=== PATIENT | male | born 1930 | race Caucasian/White ===

== ENCOUNTER 2019-01-15 16:26 | Emergency (ER) | payer MEDICARE ==
[2019-01-15] MEDS ORDERED: IPRATROPIUM/ALBUTEROL (0.5MG/3MG) NEB INH ONE (16:45)
--- NOTE | 2019-01-15 16:52 | Emergency Department Record ---
History of Present Illness - General Chief Complaint: Shortness of breath Stated Complaint: CADENCE Time Seen by Provider: 01/15/19 16:39 Source: Patient Mode of Arrival: Wheelchair Limitations: No limitations - History of Present Illness Initial Comments: The patient is here due to a one day hx of cough, congestion and COPD. He denies any CP, back pain or fever. The patient has a long hx of COPD and is on home O2. 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 MD Complaint: Cough, Shortness of breath Onset/Timin -: Days(s) Consistency: Constant Improves With: Nothing Worsens With: Coughing, Exertion, Lying flat Known History Of: COPD Associated Symptoms: Cough, Sputum production Treatments Prior to Arrival: Oxygen - Related Data Home Oxygen Therapy: Yes Home Oxygen Amount: 2 Liters Home Medications Medication Instructions Recorded Confirmed Last Taken Budesonide/Formoterol Fumarate 1 puff IH DAILY 01/15/19 01/15/19 Unknown [Symbicort 160-4.5 Mcg Inhaler] Ipratropium [place] [Atrovent Hfa] 1 puff IH DAILY 01/15/19 01/15/19 Unknown Previous Rx's Medication Instructions Recorded Prednisone [Prednisone 20Mg] 40 mg PO DAILY #8 tab 01/15/19 Allergies Allergy/AdvReac Type Severity Reaction Status Date / Time No Known Drug Allergies Allergy Verified 01/15/19 17:09 Travel Screening - Travel/Exposure Within Last 30 Days Have you traveled within the last 30 days?: No Review of Systems Constitutional: Denies: Chills, Fever Eyes: Denies: Eye discharge ENT: Reports: Congestion Respiratory: Reports: Cough, Dyspnea. Denies: Hemoptysis Cardiovascular: Denies: Chest pain Endocrine: Reports: Fatigue Gastrointestinal: Denies: Nausea Genitourinary: Denies: Dysuria Musculoskeletal: Denies: Arthralgia Skin: Denies: Rash Past Medical History - SOCIAL HISTORY Smoking Status: Former smoker - RESPIRATORY Hx Respiratory Disorders: Yes Hx COPD: Yes - CARDIOVASCULAR Hx Cardio Disorders: Yes Hx Hypertension: Yes Hx Vascular Disease: Yes Comment:: high cholesterol - NEURO Hx Neuro Disorders: No - GI Hx GI Disorders: Yes Hx Reflux: Yes - Hx Genitourinary Disorders: No - ENDOCRINE Hx Endocrine Disorders: No - MUSCULOSKELETAL Hx Musculoskeletal Disorders: No - PSYCH Hx Psych Problems: No - HEMATOLOGY/ONCOLOGY Hx Hematology/Oncology Disorders: No Family Medical History Any Significant Family History?: Yes Hx Cancer: Mother Physical Exam - General General Appearance: Alert, Oriented x3, Cooperative, Mild distress - Head Head exam: Atraumatic, Normocephalic - Eye Eye exam: Normal appearance, PERRL - ENT Throat exam: Normal inspection. negative: Tonsillar erythema, Tonsillar exudate - Neck Neck exam: Normal inspection, Full ROM. negative: Tenderness - Respiratory Respiratory exam: Decreased breath sounds, Wheezes. negative: Normal lung sounds bilaterally, Chest wall tenderness, Respiratory distress, Rhonchi, Stridor - Cardiovascular Cardiovascular Exam: Regular rate, Normal rhythm, Normal heart sounds. negative: Diastolic murmur - GI/Abdominal GI/Abdominal exam: Soft, Normal bowel sounds. negative: Tenderness - Extremities Extremities exam: Normal inspection, Full ROM, Normal capillary refill. negative: Tenderness - Back Back exam: Reports: Normal inspection - Neurological Neurological exam: Alert, Normal gait. negative: Abnormal gait, Motor sensory deficit - Psychiatric Psychiatric exam: negative: Anxious Course Vital Signs 01/15/19 16:34 Temperature 97.8 F Pulse Rate 105 H Respiratory 22 Rate Blood Pressure 134/80 Pulse Ox 94 L - Reevaluation(s) Reevaluation #1: The patient is doing a lot better at this time. His breathing is back to normal and his lungs are clear on exam now with no wheezing or rhonchi. The patient is moving air very well and feels MUCH better. 01/15/19 17:40 Reevaluation #2: The patient is doing very well at this time. His biox on 2 Liters is 99% and he feels MUCH better. Again his lungs are clear with no wheezing and the patient feels comfortable going home. 01/15/19 17:59 Medical Decision Making - Data Complexity MDM Data: Labs Ordered and/or Reviewed, X-Ray Ordered and/or Reviewed, EKG Ordered and/or Reviewed - Lab Data Result diagrams: 01/15/19 17:00 01/15/19 17:00 - EKG Data -: EKG Interpreted by Me EKG: No Acute Changes, Unchanged From Previous - Radiology Data Radiology results: Report reviewed (CXR: COPD, neg for acute changes.) Disposition Disposition: Discharge Clinical Impression: COPD exacerbation Disposition: Home, Self-Care Condition: (2) Stable Instructions: Dyspnea (ED) Additional Instructions: Please continue your regular medicines and continue the Prednisone tomorrow. Please see your family doctor later this week for recheck. Return to the ER for any return of the SOB, CADENCE, or any pain. Prescriptions: Prednisone [Prednisone 20Mg] 40 mg PO DAILY #8 tab Forms: Patient Portal Access Time of Disposition: 18:01 Quality - Quality Measures Quality Measures: N/A - Blood Pressure Screening View Details: Yes Does Patient Have Any of the Following: No Blood Pressure Classification: Normal BP Reading Systolic Measurement: 117 Diastolic Measurement: 62 Screening for High Blood Pressure: < Normal BP, F/U Not Required > [G8783]
[2019-01-15] MEDS ORDERED: METHYLPREDNISOLONE PF 125MG/VIAL IVP ONE (16:54)
[2019-01-15] MEDS ORDERED: ALBUTEROL SULFATE (0.083%) 2.5 MG/3 ML NEB INH ONE ×2 (16:54→17:20)
[2019-01-15 17:28] LABS: ABSOLUTE NEUTROPHIL COUNT 6.82; BASO % 0.3 % (0-6); EOS % 5.2 % (0-6); GRAN % 78.8 % (47-80); HEMATOCRIT 41.6 % (42.0-52.0); HEMOGLOBIN 13.6 gm/dl (14.0-18.0); LYMPH % 7.7 % (16-45); MEAN CELL VOLUME 94.3 fl (81-97); MEAN CORPUSCULAR HEMOGLOBIN 30.8 pg (27-33); MEAN CORPUSCULAR HGB CONC 32.7 g/dl (32-36); MEAN PLATELET VOLUME 11.5 fl (7.4-10.4); PLATELET COUNT 151 K/uL (130-400); RED BLOOD COUNT 4.41 M/uL (4.40-5.70); RED CELL DISTRIBUTION WIDTH 14.3 % (11.5-14.5); WHITE BLOOD COUNT W/O DIFF 8.7 K/uL (4.2-12.2)
[2019-01-15 17:43] LABS: BLOOD UREA NITROGEN 24 mg/dL (8-23); CREATININE 1.2 mg/dL (0.7-1.2); EST GLOMERULAR FILTRATION RATE > 60 mL/min; TOTAL PROTEIN 6.9 g/dL (6.6-8.7)
[2019-01-15 17:45] LABS: GLUCOSE,RANDOM 108 mg/dL (74-109)
[2019-01-15 17:48] LABS: ALB/GLOB RATIO 1.4 (1.1-1.8); ALKALINE PHOSPHATASE 27 U/L (40-129); ALT/SGPT 10 U/L (<41); AST/SGOT 17 U/L (10.0-50.0)
--- NOTE | 2019-01-16 19:35 | RADIOLOGY REPORT ---
EXAM: CHEST 2 VIEWS HISTORY: PATIENT HAS SHORTNESS OF BREATH. TECHNIQUE: Two views of the chest are provided along with a comparison CT scan of the chest dated 01/14/2019. FINDINGS: Calcified granulomas are again identified bilaterally. Severe emphysematous changes are identified bilaterally. Cardiomediastinal silhouette is within normal limits for size and contour. Post sternotomy changes are identified. There is no radiographic evidence of a new focal infiltrate, pleural effusion, or pneumothorax. IMPRESSION: SIGNIFICANT EMPHYSEMATOUS CHANGES ARE IDENTIFIED BILATERALLY WITHOUT RADIOGRAPHIC EVIDENCE OF A NEW, ACUTE INTRATHORACIC PROCESS. JOB NUMBER: [id number] [facility]
== END 2019-01-15 18:08 | disposition home or self-care (01) ==
LOC: ER 16:26
DX: J44.1 Chronic obstructive pulmonary disease with (acute) exacerbation (principal); I10 Essential (primary) hypertension; Z99.81 Dependence on supplemental oxygen; Z87.891 Personal history of nicotine dependence
CPT/HCPCS: 71046; 80053; 83880; 84484; 85025; 93005; 93010; 94640; 96374; 99284; J2930; J7613

== ENCOUNTER 2019-01-20 23:11 | Observation (INO) | payer MEDICARE ==
--- NOTE | 2019-01-20 23:30 | Emergency Department Record ---
History of Present Illness - General Chief Complaint: Bloody Sputum Stated Complaint: SPITTING UP BLOOD Time Seen by Provider: 01/20/19 23:12 Source: Patient Mode of Arrival: Ambulatory Limitations: No limitations - History of Present Illness Initial comments: 88 yo male presents to ED for evaluation of "spitting up blood". Patient reports history of esophageal bleeding 6-7 years ago identified on EGD, has been taking Carafate since that time without problems. Patient denies hemoptysis or difficulty in breathing, denies chest pain, fevers, chills, or recent illness. Patient reports that he feels at his baseline currently. Patient does take Joni vix at his baseline. Onset/Timin -: Days(s) Radiation: Non-Radiating Consistency: Intermittent Improves with: None Worsens with: None Associated Symptoms: Denies other symptoms Treatments Prior to Arrival: None - Pretty Coma Scale Eye Response: (4) Open spontaneously Motor Response: (6) Obeys commands Verbal Response: (5) Oriented Pretty Total: 15 - Related Data Home Medications Medication Instructions Recorded Confirmed Last Taken Aspirin [Aspirin EC] 81 mg PO DAILY 01/20/19 01/20/19 Unknown Melatonin 5 mg PO DAILY 01/20/19 01/20/19 Unknown Tiotropium [place] [Spiriva 2.5 gm IH ASDIR 01/20/19 01/20/19 Unknown Respimat] Allergies Allergy/AdvReac Type Severity Reaction Status Date / Time No Known Drug Allergies Allergy Verified 01/15/19 17:09 Travel Screening - Travel/Exposure Within Last 30 Days Have you traveled within the last 30 days?: No - Travel/Exposure Within Last Year Have you traveled outside the [place] in the last year?: No - Additonal Travel Details Have you been exposed to anyone with a communicable illness?: No - Travel Symptoms Symptom Screening: None Review of Systems Constitutional: Denies: Chills, Fever, Malaise, Night sweats Eyes: Denies: Eye discharge, Eye pain ENT: Denies: Congestion, Ear pain, Epistaxis Respiratory: Denies: Cough, Dyspnea Cardiovascular: Denies: Chest pain, Dyspnea on exertion Endocrine: Denies: Fatigue, Heat or cold intolerance Gastrointestinal: Denies: Abdominal pain, Nausea, Vomiting Genitourinary: Denies: Incontinence, Retention Musculoskeletal: Denies: Arthralgia, Back pain Skin: Denies: Bruising, Change in color Neurological: Denies: Abnormal gait, Confusion, Headache, Seizure Psychiatric: Denies: Anxiety Hematological/Lymphatic: Denies: Anemia, Blood Clots Past Medical History - SOCIAL HISTORY Smoking Status: Former smoker Alcohol Use: None Drug Use: None - RESPIRATORY Hx Respiratory Disorders: Yes Hx COPD: Yes - CARDIOVASCULAR Hx Cardio Disorders: Yes Hx Hypertension: Yes Hx Vascular Disease: Yes Comment:: high cholesterol - NEURO Hx Neuro Disorders: No - GI Hx GI Disorders: Yes Hx Reflux: Yes - Hx Genitourinary Disorders: No - ENDOCRINE Hx Endocrine Disorders: No - MUSCULOSKELETAL Hx Musculoskeletal Disorders: No - PSYCH Hx Psych Problems: No - HEMATOLOGY/ONCOLOGY Hx Hematology/Oncology Disorders: No Family Medical History Any Significant Family History?: Yes Hx Cancer: Mother Physical Exam - General General Appearance: Alert, Oriented x3, Cooperative, Mild distress Limitations: No limitations - Head Head exam: Atraumatic, Normocephalic, Normal inspection Head exam detail: negative: Abrasion, Contusion, Montoya's sign, General tenderness, Hematoma, Laceration - Eye Eye exam: Other (Cloudy cornea left eye). negative: Conjunctival injection, Periorbital swelling, Periorbital tenderness, Scleral icterus - ENT Ear exam: negative: Auricular hematoma, Auricular trauma Nasal Exam: negative: Active bleeding, Discharge, Dried blood, Foreign body Mouth exam: negative: Drooling, Laceration, Muffled voice, Tongue elevation - Neck Neck exam: Normal inspection. negative: Meningismus, Tenderness - Respiratory Respiratory exam: Normal lung sounds bilaterally. negative: Rales, Respiratory distress, Rhonchi, Stridor - Cardiovascular Cardiovascular Exam: Normal rhythm, Normal heart sounds, Tachycardia - GI/Abdominal GI/Abdominal exam: Soft. negative: Rebound, Rigid, Tenderness - Rectal Rectal exam: Deferred - exam: Deferred - Extremities Extremities exam: Normal inspection. negative: Pedal edema, Tenderness - Back Back exam: Denies: CVA tenderness (R), CVA tenderness (L) - Neurological Neurological exam: Alert, Normal gait, Oriented X3 - Psychiatric Psychiatric exam: Normal affect, Normal mood - Skin Skin exam: Normal color. negative: Abrasion Type of lesion: negative: abrasion Course Vital Signs 01/20/19 23:18 Temperature 97.5 F L Pulse Rate [ 126 H Pulse Ox Probe] Respiratory 28 H Rate Blood Pressure 103/84 [Left Arm] Pulse Ox 98 - Reevaluation(s) Reevaluation #1: 01/20/19 23:34 EKG: Sinus tachycardia 122 Normal axis, RBBB No acute ST-T wave changes No significant change from 01/15/19 Reevaluation #2: 01/20/19 23:48 Patient coughed up a large clot. Symptoms appear c/w UGI bleed, will initiate treatment with Protonix IV. Reevaluation #3: 01/21/19 06:33 Case was discussed with Dr. Devries, will accept admission at this time. Message with left with Dr. Funes re: consultation for UGI bleeding. Medical Decision Making - Lab Data Result diagrams: 01/20/19 23:30 01/20/19 23:30 Disposition Disposition: Admit Clinical Impression: UGI bleed, Antiplatelet or antithrombotic long-term use COPD (chronic obstructive pulmonary disease) Qualifiers: COPD type: unspecified COPD Qualified Code(s): J44.9 - Chronic obstructive pulmonary disease, unspecified Disposition: Still a Patient at [facility] Decision to Admit: Admit from ER Decision to Admit Date: 01/20/19 Decision to Admit Time: 23:50 Condition: (2) Stable Time of Disposition: 23:50 Quality - Quality Measures Quality Measures: N/A - Blood Pressure Screening Does Patient Have Any of the Following: Active Dx of HTN Blood Pressure Classification: Normal BP Reading Systolic Measurement: 104 Diastolic Measurement: 59 Screening for High Blood Pressure: Patient Exclusion, Hx of HTN [G9744]
[2019-01-20 23:36] LABS: ABSOLUTE NEUTROPHIL COUNT 8.56; BASO % 0.2 % (0-6); EOS % 0.5 % (0-6); GRAN % 66.5 % (47-80); LYMPH % 23.4 % (16-45); MEAN CELL VOLUME 94.9 fl (81-97); MEAN CORPUSCULAR HGB CONC 31.7 g/dl (32-36); MEAN PLATELET VOLUME 10.3 fl (7.4-10.4); MONO % 9.4 % (0-9); PLATELET COUNT 231 K/uL (130-400); RED BLOOD COUNT 4.32 M/uL (4.40-5.70); RED CELL DISTRIBUTION WIDTH 14.4 % (11.5-14.5); WHITE BLOOD COUNT W/O DIFF 12.9 K/uL (4.2-12.2)
[2019-01-20] MEDS ORDERED: 0.9 % SODIUM CHLORIDE 1000ML 500 ML IV SCH (23:45)
[2019-01-20] MEDS ORDERED: PANTOPRAZOLE SODIUM IV 40 MG VIAL IVP ONE (23:49)
[2019-01-20 23:50] LABS: BILIRUBIN,TOTAL 0.4 mg/dL (0.2-1.0); CREATININE 1.7 mg/dL (0.7-1.2); TOTAL PROTEIN 6.4 g/dL (6.6-8.7)
[2019-01-20 23:55] LABS: ALB/GLOB RATIO 1.5 (1.1-1.8); ALBUMIN 3.8 g/dL (4.0-5.0)
[2019-01-21] MEDS ORDERED: MIDAZOLAM HCL 2MG/2ML VIAL IV ONE (00:43)
[2019-01-21] MEDS ORDERED: FENTANYL PF 100MCG/2ML VIAL IV ONE (00:43)
[2019-01-21] MEDS ORDERED: *PACU ONLY* KETAMINE HCL 10 MG/ML (20ML) VIAL IV ONE (00:43)
[2019-01-21] MEDS ORDERED: 0.9 % SODIUM CHLORIDE 1000ML 1,000 ML IV ONE (00:56)
[2019-01-21 09:39] LABS: ABSOLUTE NEUTROPHIL COUNT 8.99; BASO % 0.2 % (0-6); EOS % 1.3 % (0-6); GRAN % 66.3 % (47-80); HEMATOCRIT 35.4 % (42.0-52.0); LYMPH % 24.4 % (16-45); MEAN CELL VOLUME 95.4 fl (81-97); MEAN CORPUSCULAR HEMOGLOBIN 29.6 pg (27-33); MEAN CORPUSCULAR HGB CONC 31.1 g/dl (32-36); MEAN PLATELET VOLUME 10.4 fl (7.4-10.4); MONO % 7.8 % (0-9); PLATELET COUNT 228 K/uL (130-400); RED BLOOD COUNT 3.71 M/uL (4.40-5.70); RED CELL DISTRIBUTION WIDTH 14.4 % (11.5-14.5); WHITE BLOOD COUNT W/O DIFF 13.6 K/uL (4.2-12.2)
[2019-01-21] MEDS: UMECLIDINIUM BROMIDE (INCRUSE) 62.5MCG IH SCH (09:44)
[2019-01-21] MEDS: BREO (FLUTICASONE/VILANTEROL) 200MCG/25MCG INHALER INH SCH (09:44)
[2019-01-21] MEDS ORDERED: IPRATROPIUM BROMIDE IH SCH (10:00)
[2019-01-21] MEDS ORDERED: PANTOPRAZOLE SODIUM IV 40 MG VIAL IVP SCH (11:30)
[2019-01-21] MEDS: ATORVASTATIN 20 MG TABLET PO SCH (11:34)
[2019-01-21] MEDS: SUCRALFATE 1 G/10 ML UD PO SCH ×4 (11:44→21:58)
--- NOTE | 2019-01-21 13:23 | History & Physical ---
History of Present Illness - Date of Service Date of Service for History & Physical: 01/21/19 - History of Present Illness Admitting Diagnosis: UGI Bleed. COPD History of Present Illness: PMHx: CAD, HTN, PUD Pt states that he came to the ED yesterday because he was spitting up blood and had dark stool. States that he has had ulcers in the past. Pt denies any other sx today. VS: T: 97.5 P: 126 RR: 28 BP: 103/84 O2: 98 EKG: sinus tach Labs: WBC increased at 12.9, Hb went from 15.8 -> 13 in last 15 days, BUN 60, Cr 1.7 (baseline 0.9) CXR neg Travel Screening - Travel/Exposure Within Last 30 Days Have you traveled within the last 30 days?: No - Travel/Exposure Within Last Year Have you traveled outside the [place] in the last year?: No - Additonal Travel Details Have you been exposed to anyone with a communicable illness?: No - Travel Symptoms Symptom Screening: None Review of Systems Constitutional: Denies: Chills, Fever, Malaise, Night sweats Eyes: Denies: Eye discharge, Eye pain ENT: Denies: Congestion, Ear pain, Epistaxis Respiratory: Denies: Cough, Dyspnea, Hemoptysis, Wheezes Cardiovascular: Denies: Chest pain, Dyspnea on exertion, Edema Endocrine: Denies: Fatigue, Heat or cold intolerance Gastrointestinal: Denies: Abdominal pain, Nausea, Vomiting Genitourinary: Denies: Dysuria, Frequency, Hematuria, Incontinence, Retention Musculoskeletal: Denies: Arthralgia, Back pain Skin: Denies: Bruising, Change in color Neurological: Denies: Abnormal gait, Confusion, Headache, Seizure Psychiatric: Denies: Anxiety Hematological/Lymphatic: Denies: Anemia, Blood Clots Past Medical History - SOCIAL HISTORY Smoking Status: Former smoker Alcohol Use: None Drug Use: None - RESPIRATORY Hx Respiratory Disorders: Yes Hx COPD: Yes - CARDIOVASCULAR Hx Cardio Disorders: Yes Hx Hypertension: Yes Hx Vascular Disease: Yes Comment:: high cholesterol - NEURO Hx Neuro Disorders: No - GI Hx GI Disorders: Yes Hx Reflux: Yes - Hx Genitourinary Disorders: No - ENDOCRINE Hx Endocrine Disorders: No - MUSCULOSKELETAL Hx Musculoskeletal Disorders: No - PSYCH Hx Psych Problems: No - HEMATOLOGY/ONCOLOGY Hx Hematology/Oncology Disorders: No Family Medical History Any Significant Family History?: Yes Hx Cancer: Mother H&P Meds/Allergies - Allergies Allergies: Allergies Allergy/AdvReac Type Severity Reaction Status Date / Time No Known Drug Allergies Allergy Verified 01/15/19 17:09 - Home Medications Home Medications Medication Instructions Recorded Confirmed Last Taken Aspirin [Aspirin EC] 81 mg PO DAILY 01/20/19 01/20/19 Unknown Melatonin 5 mg PO DAILY 01/20/19 01/20/19 Unknown Tiotropium [place] [Spiriva 2.5 gm IH ASDIR 01/20/19 01/20/19 Unknown Respimat] - Active Medications Active Medications: Current Medications Atorvastatin Calcium (Lipitor) 40 mg PO DAILY [facility] Last Admin: 01/21/19 11:34 Dose: 40 mg Documented by: Melatonin (Melatonin) 5 mg PO QHS KEIKO Pantoprazole Sodium (Protonix Iv) 40 mg IVP Q12HR KEIKO Sucralfate (Carafate) 1 g PO QID [facility] Last Admin: 01/21/19 11:44 Dose: Not Given Documented by: Physical Exam - Vital Signs Vital Signs: Vital Signs - Last 24 Hrs Temp Pulse Pulse Resp BP BP Pulse Ox 01/21/19 13:00 97.8 F 85 15 100/57 97 01/21/19 10:35 98.4 F 100 H 16 149/77 95 01/21/19 09:50 104 H 18 01/21/19 08:00 98.1 F 109 H 16 108/74 97 01/21/19 04:00 98.4 F 96 H 16 104/59 98 01/21/19 00:20 98.2 F 113 H 16 112/62 100 01/21/19 00:13 117 H 20 123/85 97 01/20/19 23:18 97.5 F L 126 H 28 H 103/84 98 - General General Appearance: Alert, Oriented x3, Cooperative, No acute distress Limitations: No limitations - Head Head exam: Atraumatic, Normocephalic, Normal inspection Head exam detail: negative: Abrasion, Contusion, Montoya's sign, General tenderness, Hematoma, Laceration - Eye Eye exam: Other (Cloudy cornea left eye). negative: Conjunctival injection, Periorbital swelling, Periorbital tenderness, Scleral icterus - ENT ENT exam: Normal exam, Mucous membranes moist Ear exam: negative: Auricular hematoma, Auricular trauma Nasal Exam: negative: Active bleeding, Discharge, Dried blood, Foreign body Mouth exam: negative: Drooling, Laceration, Muffled voice, Tongue elevation - Neck Neck exam: Normal inspection. negative: Meningismus, Tenderness - Respiratory Respiratory exam: Normal lung sounds bilaterally. negative: Rales, Respiratory distress, Rhonchi, Stridor - Cardiovascular Cardiovascular Exam: Regular rate, Normal rhythm, Normal heart sounds - GI/Abdominal GI/Abdominal exam: Soft. negative: Rebound, Rigid, Tenderness - Rectal Rectal exam: Deferred - exam: Deferred - Extremities Extremities exam: Normal inspection. negative: Pedal edema, Tenderness - Back Back exam: Denies: CVA tenderness (R), CVA tenderness (L) - Neurological Neurological exam: Alert, Normal gait, Oriented X3 - Psychiatric Psychiatric exam: Normal affect, Normal mood - Skin Skin exam: Normal color. negative: Abrasion Type of lesion: negative: abrasion Results - Labs Result Diagrams: 01/21/19 09:31 01/20/19 23:30 Labs Last 24 Hours: Laboratory Results - last 24 hr 01/20/19 01/20/19 01/21/19 23:30 23:30 09:31 WBC 12.9 H RBC 4.32 L Hgb 13.0 L Hct 41.0 L MCV 94.9 MCH 30.0 MCHC 31.7 L RDW 14.4 Plt Count 231 MPV 10.3 Gran % 66.5 Lymphocytes % 23.4 Monocytes % 9.4 H Eosinophils % 0.5 Basophils % 0.2 Absolute Neutrophils 8.56 Sodium 142 Potassium 4.6 H Chloride 101 Carbon Dioxide 31.0 H Anion Gap 10.0 BUN 60 H Creatinine 1.7 H Estimated GFR 41 Random Glucose 123 H Lactic Acid 0.9 Calcium 10.0 Total Bilirubin 0.40 AST 14 ALT 13 Alkaline Phosphatase 21 L Total Protein 6.4 L Albumin 3.8 L Globulin 2.6 Albumin/Globulin Ratio 1.5 01/21/19 09:31 WBC 13.6 H RBC 3.71 L Hgb 11.0 L Hct 35.4 L MCV 95.4 MCH 29.6 MCHC 31.1 L RDW 14.4 Plt Count 228 MPV 10.4 Gran % 66.3 Lymphocytes % 24.4 Monocytes % 7.8 Eosinophils % 1.3 Basophils % 0.2 Absolute Neutrophils 8.99 Sodium Potassium Chloride Carbon Dioxide Anion Gap BUN Creatinine Estimated GFR Random Glucose Lactic Acid Calcium Total Bilirubin AST ALT Alkaline Phosphatase Total Protein Albumin Globulin Albumin/Globulin Ratio VTE H&P Assessment - Risk for VTE Risk for VTE: Yes Risk Level: High Risk Assessment Date: 01/21/19 Risk Assessment Time: 13:24 VTE Orders Placed or Will Be Placed: No VTE Reason for No Prophylaxis: Contraindicated (GI bleed) Plan - Detailed Diagnosis and Plan (1) UGI bleed Current Visit: Yes Status: Acute Base Code: K92.2 - GASTROINTESTINAL HEMORRHAGE, UNSPECIFIED Priority: High Comment: - Dr. Funes saw pt this AM. - No active bleeding but ulcer with large vessel protrusion noted on endoscopy. - Cho's esophagus present. - D/C plavix and ASA - 40mg protonix BID - Dr. Funes recommended that he stay overnight to see that he is tolerating food without bleeding and also recheck Hb in AM before D/C'ing - Rpt scope sceduled in 8 weeks. - Pt tachycardic on admission, continue fluids for hypotension -> likely causing increase in Cr. BUN increased 2/2 to bleeding. - Will recheck BMP. - Elevated wbc likely 2/2 to stress of GI bleed. CXR neg. UA +cx pending. No other signs of infection seen. (2) Antiplatelet or antithrombotic long-term use Current Visit: Yes Status: Acute Base Code: Z79.02 - DIRECT OF REAL ESTATE (CURRENT) USE OF ANTITHROMBOTICS/ANTIPLATELETS Priority: High Comment: - D/C all blood thinners. (3) COPD (chronic obstructive pulmonary disease) Current Visit: Yes Status: Acute Qualifiers: COPD type: unspecified COPD Qualified Code(s): J44.9 - Chronic obstructive pulmonary disease, unspecified Base Code: J44.9 - CHRONIC OBSTRUCTIVE PULMONARY DISEASE, UNSPECIFIED Priority: High Comment: - Continue home meds. - CXR neg for acute process today (4) DVT prophylaxis Current Visit: Yes Status: Acute Base Code: Z29.9 - ENCOUNTER FOR PROPHYLACTIC MEASURES, UNSPECIFIED Priority: High Comment: - Contraindicated 2/2 to GI bleed. (5) Full code status Current Visit: Yes Status: Acute Base Code: Z78.9 - OTHER SPECIFIED HEALTH STATUS Priority: High - Disposition Tomorrow pending tolerance of soft diet and stable Hb levels.
[2019-01-21 13:29] LABS: CREATININE 1.4 mg/dL (0.7-1.2)
[2019-01-21 14:56] LABS: URINE APPEARANCE CLEAR; URINE BILIRUBIN NEGATIVE (NEGATIVE); URINE BLOOD NEGATIVE (NEGATIVE); URINE COLOR YELLOW; URINE GLUCOSE (UA) NEGATIVE (NEGATIVE); URINE KETONE NEGATIVE (NEGATIVE); URINE LEUKOCYTE ESTERASE NEGATIVE (NEGATIVE); URINE NITRITE NEGATIVE (NEGATIVE); URINE PROTEIN NEGATIVE (NEGATIVE); URINE UROBILINOGEN 0.2 E.U./dL (0.20 - 1.00)
[2019-01-21] MEDS: 0.9 % SODIUM CHLORIDE 1000ML 1,000 ML IV PRN (18:24)
[2019-01-21] MEDS: MELATONIN 5 MG TABLET PO SCH (21:58)
[2019-01-21] MEDS: PANTOPRAZOLE SODIUM IV 40 MG VIAL IVP SCH (21:58)
[2019-01-22] MEDS: 0.9 % SODIUM CHLORIDE 1000ML 1,000 ML IV PRN (02:30)
[2019-01-22 06:37] LABS: ABSOLUTE NEUTROPHIL COUNT 5.87; BASO % 0.1 % (0-6); EOS % 3.2 % (0-6); GRAN % 63.8 % (47-80); HEMATOCRIT 26.7 % (42.0-52.0); HEMOGLOBIN 8.3 gm/dl (14.0-18.0); LYMPH % 25.3 % (16-45); MEAN CELL VOLUME 95.7 fl (81-97); MEAN CORPUSCULAR HEMOGLOBIN 29.7 pg (27-33); MEAN CORPUSCULAR HGB CONC 31.1 g/dl (32-36); MEAN PLATELET VOLUME 10.5 fl (7.4-10.4); MONO % 7.6 % (0-9); PLATELET COUNT 151 K/uL (130-400); RED BLOOD COUNT 2.79 M/uL (4.40-5.70); WHITE BLOOD COUNT W/O DIFF 9.2 K/uL (4.2-12.2)
--- NOTE | 2019-01-22 06:50 | RADIOLOGY REPORT ---
EXAM: CHEST, TWO VIEWS HISTORY: BLOOD IN SPUTUM. KNOWN GI BLEEDING. TECHNIQUE: Upright PA and lateral views of the chest were obtained. Comparison: Two view chest radiographic examination dated 01/15/19. FINDINGS: Post median sternotomy changes are redemonstrated. 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 The heart is not enlarged. No pulmonary venous hypertension is seen. The thoracic aorta is tortuous and atherosclerotic. Biapical lung scarring is present. A calcified granuloma is again noted in the lateral left lung apex. On the frontal view there is ill defined increased opacity at the right hemithorax space level. This may just relate to superimposed soft tissue though minor air space disease would be difficult to exclude. A calcified granuloma is again suggested in the medial right lung base. The lungs and pleural spaces are otherwise clear. Mild dextroconvex curvature of the thoracic spine. Old healed fracture deformity of the mid left clavicle. Degenerative changes are scattered throughout the visualized spine and shoulder girdles. IMPRESSION: 1. POST MEDIAN STERNOTOMY CHANGES REDEMONSTRATED. 2. ON THE FRONTAL VIEW THERE IS SUBTLE ILL DEFINED INCREASED OPACITY PROJECTING AT THE LEVEL OF THE RIGHT HEMITHORAX SPACE. THIS MAY JUST RELATE TO SUPERIMPOSED SOFT TISSUE WITH MINOR AIR SPACE DISEASE NOT, HOWEVER, EXCLUDED. 3. HEALED GRANULOMATOUS DISEASE. JOB NUMBER: [id number] [facility]
[2019-01-22 07:18] LABS: BLOOD UREA NITROGEN 45 mg/dL (8-23); CREATININE 1.2 mg/dL (0.7-1.2); EST GLOMERULAR FILTRATION RATE > 60 mL/min; GLUCOSE,RANDOM 106 mg/dL (74-109)
--- NOTE | 2019-01-22 08:26 | Physician Progress Note ---
Subjective - Date Date of Physician Progress Note: 01/22/19 - Subjective Subjective Comment: Has tolerated bland diet over the past 24 hours. Did have 1 black tarry stool after his EGD yesterday. Otherwise no complaints. NO new nursing concerns. Objective - Vital Signs Vital Signs: Vital Signs - Last 24 Hrs Temp Pulse Pulse Resp BP Pulse Ox 01/22/19 05:45 98.1 F 69 16 89/47 98 01/22/19 00:00 98.5 F 73 16 102/52 96 01/21/19 20:00 98.6 F 84 16 112/57 95 01/21/19 16:30 97.6 F 89 16 119/59 96 01/21/19 13:00 97.8 F 85 15 100/57 97 01/21/19 10:35 98.4 F 100 H 16 149/77 95 01/21/19 09:50 104 H 18 - General General Appearance: Alert, Oriented x3, Cooperative, No acute distress Limitations: No limitations - Head Head exam: Atraumatic, Normocephalic, Normal inspection Head exam detail: negative: Abrasion, Contusion, Montoya's sign, General tenderness, Hematoma, Laceration - Eye Eye exam: Other (Cloudy cornea left eye). negative: Conjunctival injection, Periorbital swelling, Periorbital tenderness, Scleral icterus - ENT ENT exam: Normal exam, Mucous membranes moist Ear exam: negative: Auricular hematoma, Auricular trauma Nasal Exam: negative: Active bleeding, Discharge, Dried blood, Foreign body Mouth exam: negative: Drooling, Laceration, Muffled voice, Tongue elevation - Neck Neck exam: Normal inspection. negative: Meningismus, Tenderness - Respiratory Respiratory exam: Normal lung sounds bilaterally. negative: Rales, Respiratory distress, Rhonchi, Stridor - Cardiovascular Cardiovascular Exam: Regular rate, Normal rhythm, Normal heart sounds - GI/Abdominal GI/Abdominal exam: Soft. negative: Rebound, Rigid, Tenderness - Rectal Rectal exam: Deferred - exam: Deferred - Extremities Extremities exam: Normal inspection. negative: Pedal edema, Tenderness - Back Back exam: Denies: CVA tenderness (R), CVA tenderness (L) - Neurological Neurological exam: Alert, Normal gait, Oriented X3 - Psychiatric Psychiatric exam: Normal affect, Normal mood - Skin Skin exam: Normal color. negative: Abrasion Type of lesion: negative: abrasion Assessment and Plan - Assessment and Plan (1) UGI bleed Current Visit: Yes Status: Acute Base Code: K92.2 - GASTROINTESTINAL HEMORRHAGE, UNSPECIFIED Priority: High Comment: 01/22/19 - Hgb 11.0-->8.3 this am, could likely be 2/2 fluid resuscitation, no active GI bleeding, repeat CBC in am, noted 1 black tarry stool after endosopy yesterday - Tolerating PO bland diet - Dr. Funes saw pt 01/21/19. - No active bleeding but ulcer with large vessel protrusion noted on endoscopy. - Cho's esophagus present. - D/C plavix and ASA - 40mg protonix BID - Dr. Funes recommended that he stay overnight to see that he is tolerating food without bleeding and also recheck Hb in AM before D/C'ing - Rpt scope sceduled in 8 weeks. - Pt tachycardic on admission, continue fluids for hypotension -> likely causing increase in Cr. BUN increased 2/2 to bleeding. - Will recheck BMP. - Elevated wbc likely 2/2 to stress of GI bleed. CXR neg. UA +cx pending. No other signs of infection seen. (2) Antiplatelet or antithrombotic long-term use Current Visit: Yes Status: Acute Base Code: Z79.02 - [facility] (CURRENT) USE OF ANTITHROMBOTICS/ANTIPLATELETS Priority: High Comment: 01/22/19 - D/C all blood thinners. (3) COPD (chronic obstructive pulmonary disease) Current Visit: Yes Status: Acute Qualifiers: COPD type: unspecified COPD Qualified Code(s): J44.9 - Chronic obstructive pulmonary disease, unspecified Base Code: J44.9 - CHRONIC OBSTRUCTIVE PULMONARY DISEASE, UNSPECIFIED Priority: High Comment: 01/22/19 - Continue home meds. - CXR neg for acute process today (4) DVT prophylaxis Current Visit: Yes Status: Acute Base Code: Z29.9 - ENCOUNTER FOR PROPHYLACTIC MEASURES, UNSPECIFIED Priority: High Comment: 01/22/19 - Contraindicated 2/2 to GI bleed. - Nursing to encourage frequent ambulation (5) Full code status Current Visit: Yes Status: Acute Base Code: Z78.9 - OTHER SPECIFIED HEALTH STATUS Priority: High Results - Labs Result Diagrams: 01/22/19 06:17 09/17/19 06:17 Labs Last 24 Hours: Laboratory Results - last 24 hr 01/21/19 01/21/19 01/21/19 09:30 09:31 09:31 WBC 13.6 H RBC 3.71 L Hgb 11.0 L Hct 35.4 L MCV 95.4 MCH 29.6 MCHC 31.1 L RDW 14.4 Plt Count 228 MPV 10.4 Gran % 66.3 Lymphocytes % 24.4 Monocytes % 7.8 Eosinophils % 1.3 Basophils % 0.2 Absolute Neutrophils 8.99 Sodium 141 Potassium 4.9 H Chloride 106 Carbon Dioxide 26.0 Anion Gap 9.0 BUN 69 H Creatinine 1.4 H Estimated GFR 51 Random Glucose 109 Lactic Acid 0.9 Calcium 9.1 Urine Color Urine Appearance Urine pH Ur Specific [place] Urine Protein Urine Glucose (UA) Urine Ketones Urine Blood Urine Nitrite Urine Bilirubin Urine Urobilinogen Ur Leukocyte Esterase 01/21/19 01/22/19 01/22/19 Unknown 06:17 06:17 WBC 9.2 RBC 2.79 L Hgb 8.3 L Hct 26.7 L MCV 95.7 MCH 29.7 MCHC 31.1 L RDW 14.0 Plt Count 151 MPV 10.5 H Gran % 63.8 Lymphocytes % 25.3 Monocytes % 7.6 Eosinophils % 3.2 Basophils % 0.1 Absolute Neutrophils 5.87 Sodium 141 Potassium 4.8 H Chloride 106 Carbon Dioxide 29.0 Anion Gap 6.0 L BUN 45 H Creatinine 1.2 Estimated GFR > 60 Random Glucose 106 Lactic Acid Calcium 8.3 L Urine Color Yellow Urine Appearance Clear Urine pH 6.0 Ur Specific [place] 1.010 Urine Protein Negative Urine Glucose (UA) Negative Urine Ketones Negative Urine Blood Negative Urine Nitrite Negative Urine Bilirubin Negative Urine Urobilinogen 0.2 Ur Leukocyte Esterase Negative DVT/PE Assessment - Risk for VTE Risk for VTE: Yes Risk Level: High Risk Assessment Date: 01/21/19 Risk Assessment Time: 13:24 VTE Orders Placed or Will Be Placed: No VTE Reason for No Prophylaxis: Contraindicated (GI bleed) - Active Medicaitons Current Medications: Current Medications Atorvastatin Calcium (Lipitor) 40 mg PO DAILY [facility] Last Admin: 01/21/19 11:34 Dose: 40 mg Documented by: Melatonin (Melatonin) 5 mg PO QHS [facility] Last Admin: 01/21/19 21:58 Dose: 5 mg Documented by: Pantoprazole Sodium (Protonix Iv) 40 mg IVP Q12HR [facility] Last Admin: 01/21/19 21:58 Dose: 40 mg Documented by: Sucralfate (Carafate) 1 g PO QID [facility] Last Admin: 01/21/19 21:58 Dose: 1 g Documented by: VANESSA Plan - Labs Result Diagrams: 01/22/19 06:17 01/22/19 06:17
[2019-01-22] MEDS: SUCRALFATE 1 G/10 ML UD PO SCH ×4 (10:14→22:22)
[2019-01-22] MEDS: PANTOPRAZOLE SODIUM IV 40 MG VIAL IVP SCH ×2 (10:14→22:26)
[2019-01-22] MEDS: ATORVASTATIN 20 MG TABLET PO SCH (10:14)
[2019-01-22] MEDS: UMECLIDINIUM BROMIDE (INCRUSE) 62.5MCG IH SCH (10:15)
[2019-01-22] MEDS: BREO (FLUTICASONE/VILANTEROL) 200MCG/25MCG INHALER INH SCH (10:15)
[2019-01-22] MEDS: MELATONIN 5 MG TABLET PO SCH (22:25)
[2019-01-23 07:01] LABS: ABSOLUTE NEUTROPHIL COUNT 4.85; BASO % 0.1 % (0-6); EOS % 2.6 % (0-6); GRAN % 62.2 % (47-80); HEMATOCRIT 26.7 % (42.0-52.0); HEMOGLOBIN 8.3 gm/dl (14.0-18.0); LYMPH % 26.9 % (16-45); MEAN CELL VOLUME 95.4 fl (81-97); MEAN CORPUSCULAR HEMOGLOBIN 29.6 pg (27-33); MEAN CORPUSCULAR HGB CONC 31.1 g/dl (32-36); MONO % 8.2 % (0-9); PLATELET COUNT 162 K/uL (130-400); RED CELL DISTRIBUTION WIDTH 14.3 % (11.5-14.5); WHITE BLOOD COUNT W/O DIFF 7.8 K/uL (4.2-12.2)
[2019-01-23 07:14] LABS: BLOOD UREA NITROGEN 33 mg/dL (8-23); CREATININE 1.2 mg/dL (0.7-1.2); EST GLOMERULAR FILTRATION RATE > 60 mL/min; GLUCOSE,RANDOM 105 mg/dL (74-109)
--- NOTE | 2019-01-23 09:15 | Discharge Summary ---
Providers Discharge Summary Date: 01/23/19 Date of admission: 01/21/19 00:42 Attending physician: TATYANA CASILLAS M.D. Primary care physician: JOSE ORDAZ M.D. Consults: Consult Orders 01/21/19 00:56 Consult NOW Consulting Provider: KARLIE TRAVIS Physician Instructions: Reason For Exam: UGI bleed Physical Exam - Vital Signs Vital Signs: Vital Signs - Last 24 Hrs Temp Pulse Pulse Resp BP Pulse Ox 01/23/19 08:00 98.1 F 59 L 16 122/59 98 01/23/19 05:10 98.5 F 76 16 90/53 97 01/23/19 00:00 98.4 F 82 16 101/57 97 01/22/19 20:00 97.9 F 82 18 99/52 95 01/22/19 16:00 98.0 F 79 16 98/51 97 01/22/19 12:45 98.1 F 90 18 119/65 99 01/22/19 10:18 74 18 98 - General General Appearance: Alert, Oriented x3, Cooperative, No acute distress Limitations: No limitations - Head Head exam: Atraumatic, Normocephalic, Normal inspection Head exam detail: negative: Abrasion, Contusion, Montoya's sign, General tenderness, Hematoma, Laceration - Eye Eye exam: Other (Cloudy cornea left eye). negative: Conjunctival injection, Periorbital swelling, Periorbital tenderness, Scleral icterus - ENT ENT exam: Normal exam, Mucous membranes moist Ear exam: negative: Auricular hematoma, Auricular trauma Nasal Exam: negative: Active bleeding, Discharge, Dried blood, Foreign body Mouth exam: negative: Drooling, Laceration, Muffled voice, Tongue elevation - Neck Neck exam: Normal inspection. negative: Meningismus, Tenderness - Respiratory Respiratory exam: Normal lung sounds bilaterally. negative: Rales, Respiratory distress, Rhonchi, Stridor - Cardiovascular Cardiovascular Exam: Regular rate, Normal rhythm, Normal heart sounds - GI/Abdominal GI/Abdominal exam: Soft. negative: Rebound, Rigid, Tenderness - Rectal Rectal exam: Deferred - exam: Deferred - Extremities Extremities exam: Normal inspection. negative: Pedal edema, Tenderness - Back Back exam: Denies: CVA tenderness (R), CVA tenderness (L) - Neurological Neurological exam: Alert, Normal gait, Oriented X3 - Psychiatric Psychiatric exam: Normal affect, Normal mood - Skin Skin exam: Normal color. negative: Abrasion Type of lesion: negative: abrasion Hospitalization - Hospitalization Admission Diagnosis: UGI Bleed. COPD - Problem List/Discharge Diagnosis (1) UGI bleed Current Visit: Yes Status: Acute Base Code: K92.2 - GASTROINTESTINAL HEMORRHAGE, UNSPECIFIED Comment: 01/23/19 - Hgb 11.0-->8.3 this am, could likely be 2/2 fluid resuscitation, no active GI bleeding, Hgb 8.3 agin this am in am, noted continued tarry stools, no silvana blood - Tolerating PO bland diet - Dr. Travis saw pt 01/21/19. - No active bleeding but ulcer with large vessel protrusion noted on endoscopy. - Cho's esophagus present. - D/C plavix and ASA - 40mg protonix BID - Dr. Travis recommended that he stay overnight to see that he is tolerating food without bleeding and also recheck Hb in AM before D/C'ing - Rpt scope sceduled in 8 weeks. - Pt tachycardic on admission, continue fluids for hypotension -> likely causing increase in Cr. BUN increased 2/2 to bleeding. - Will recheck BMP. - Elevated wbc likely 2/2 to stress of GI bleed. CXR neg. UA +cx pending. No other signs of infection seen. 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 Cardiology input appreciated as outpatient (2) Antiplatelet or antithrombotic long-term use Current Visit: Yes Status: Acute Base Code: Z79.02 - [facility] (CURRENT) USE OF ANTITHROMBOTICS/ANTIPLATELETS Comment: 01/23/19 - D/C all blood thinners. (3) COPD (chronic obstructive pulmonary disease) Current Visit: Yes Status: Acute Discharge Diagnosis: COPD type: unspecified COPD Qualified Code(s): J44.9 - Chronic obstructive pulmonary disease, unspecified Base Code: J44.9 - CHRONIC OBSTRUCTIVE PULMONARY DISEASE, UNSPECIFIED Comment: 01/23/19 - Continue home meds. - CXR neg for acute process today (4) DVT prophylaxis Current Visit: Yes Status: Acute Base Code: Z29.9 - ENCOUNTER FOR PROPHYLACTIC MEASURES, UNSPECIFIED Comment: 01/23/19 - Contraindicated 2/2 to GI bleed. - Nursing to encourage frequent ambulation (5) Full code status Current Visit: Yes Status: Acute Base Code: Z78.9 - OTHER SPECIFIED HEALTH STATUS - Hospitalization Course Disposition: Home, Self-Care Hospital Course: PMHx: CAD, HTN, PUD Pt states that he came to the ED yesterday because he was spitting up blood and had dark stool. States that he has had ulcers in the past. Pt denies any other sx today. VS: T: 97.5 P: 126 RR: 28 BP: 103/84 O2: 98 EKG: sinus tach Labs: WBC increased at 12.9, Hb went from 15.8 -> 13 in last 15 days, BUN 60, Cr 1.7 (baseline 0.9) CXR neg 01/23/19- Hospital course unremarkalbe. Hbg did drop from 11--> 8.3 after EGD but did remain stable at 8.3. No silvana bloody stools, has continued black tarry stools that is unchanged since prior to admit. Has tolerated a bland diet without issue. Will DC home with repeat CBC on Monday, follow up with PCP next week and Dr Travis in 8 weeks for repeat EGD. Continue PPI and carafate. Resume dual antiplatelet therapy until follow up with cardiology. Question continued long-term use as s/p cardiac stent 10 years ago. Advised to return to ED if any new occurrence of silvana bloody stool or bloody vomit. Procedures: Imaging and X-Rays 01/21/19 09:06 CXR [CHEST 2 VIEWS] [RAD] Stat Cardiology Procedures 01/20/19 23:24 EKG NOW Abnormal Labs: Abnormal Lab Results 01/20/19 01/20/19 01/21/19 Range/Units 23:30 23:30 09:30 WBC 12.9 H (4.2-12.2) K/uL RBC 4.32 L (4.40-5.70) M/uL Hgb 13.0 L (14.0-18.0) gm/dl Hct 41.0 L (42.0-52.0) % MCHC 31.7 L (32-36) g/dl MPV (7.4-10.4) fl Monocytes % 9.4 H (0-9) % Potassium 4.6 H 4.9 H (3.4-4.5) mmol/L Carbon Dioxide 31.0 H (22-29) mmol/L Anion Gap (7-16) BUN 60 H 69 H (8-23) mg/dL Creatinine 1.7 H 1.4 H (0.7-1.2) mg/dL Random Glucose 123 H (74-109) mg/dL Calcium (8.8-10.2) mg/dL Alkaline Phosphatase 21 L (40-129) U/L Total Protein 6.4 L (6.6-8.7) g/dL Albumin 3.8 L (4.0-5.0) g/dL 01/21/19 01/22/19 01/22/19 Range/Units 09: 06:17 06:17 WBC 13.6 H (4.2-12.2) K/uL RBC 3.71 L 2.79 L (4.40-5.70) M/uL Hgb 11.0 L 8.3 L (14.0-18.0) gm/dl Hct 35.4 L 26.7 L (42.0-52.0) % MCHC 31.1 L 31.1 L (32-36) g/dl MPV 10.5 H (7.4-10.4) fl Monocytes % (0-9) % Potassium 4.8 H (3.4-4.5) mmol/L Carbon Dioxide (22-29) mmol/L Anion Gap 6.0 L (7-16) BUN 45 H (8-23) mg/dL Creatinine (0.7-1.2) mg/dL Random Glucose (74-109) mg/dL Calcium 8.3 L (8.8-10.2) mg/dL Alkaline Phosphatase (40-129) U/L Total Protein (6.6-8.7) g/dL Albumin (4.0-5.0) g/dL 01/23/19 01/23/19 Range/Units 06:10 06:10 WBC (4.2-12.2) K/uL RBC 2.80 L (4.40-5.70) M/uL Hgb 8.3 L (14.0-18.0) gm/dl Hct 26.7 L (42.0-52.0) % MCHC 31.1 L (32-36) g/dl MPV 11.0 H (7.4-10.4) fl Monocytes % (0-9) % Potassium (3.4-4.5) mmol/L Carbon Dioxide 31.0 H (22-29) mmol/L Anion Gap 6.0 L (7-16) BUN 33 H (8-23) mg/dL Creatinine (0.7-1.2) mg/dL Random Glucose (74-109) mg/dL Calcium 8.6 L (8.8-10.2) mg/dL Alkaline Phosphatase (40-129) U/L Total Protein (6.6-8.7) g/dL Albumin (4.0-5.0) g/dL Condition at Discharge: (2) Stable Discharge Medications - Discharge Medications Prescriptions: Pantoprazole Sodium [Protonix] 40 mg PO DAILY #28 tablet. Home Medications: Ambulatory Orders Clopidogrel Bisulfate [Plavix] 75 mg PO DAILY 12/06/13 [Last Taken Unknown] Rosuvastatin Calcium [Crestor] 10 mg PO DAILY 12/06/13 [Last Taken Unknown] Sucralfate [Carafate] 1 gm PO QID 12/06/13 [Last Taken Unknown] Budesonide/Formoterol Fumarate [Symbicort 160-4.5 Mcg Inhaler] 1 puff IH DAILY 01/15/19 [Last Taken Unknown] Ipratropium [place] [Atrovent Hfa] 1 puff IH DAILY 01/15/19 [Last Taken Unknown] Aspirin [Aspirin EC] 81 mg PO DAILY 01/20/19 [Last Taken Unknown] Melatonin 5 mg PO DAILY 01/20/19 [Last Taken Unknown] Tiotropium [place] [Spiriva Respimat] 2.5 gm IH ASDIR 01/20/19 [Last Taken Unknown] Pantoprazole Sodium [Protonix] 40 mg PO DAILY #28 tablet. 01/23/19 [Last Taken Unknown] Discharge Plan - Discharge Instructions Activity at Discharge: Increase Activity as Tolerated Diet at Discharge: Advance to Usual Diet Additional Instructions: EGD has been scheduled for you with Dr. Travis at [facility] on March 25. Please check in at 12:30PM. If you need to reschedule, please call [phone]. Repeat blood work 01/25/19 Follow up with PCP in 1 week Follow up with visual training aide in 1 week to discuss potential discontinuation of aspirin and plavix due to GI bleeding Quality Measures - Quality Measures Quality Measures: Advance Directives, Documentation of Current Medications in Medical Record, Elder Maltreatment Screen and Follow-Up Plan, Screening for High Blood Pressure and F/U Documented - Current Medications Quality Measure: Measure #130: Documentation of Current Medications Documentation of Current Medications: <Current Medications Documented/Reviewed> [J1886] - Blood Pressure Screening Quality Measure: Screening for High Blood Pressure and Follow-Up Documented Does Patient Have Any of the Following: No Blood Pressure Classification: Pre-Hypertensive BP Reading Systolic Measurement: 122 Diastolic Measurement: 59 Screening for High Blood Pressure: < Pre-Hypertensive BP, F/U Documented > [S8950] Pre-Hypertensive Follow-up Interventions: Follow-up with rescreen every year. - Advance Directives Quality Measure: Measure #47: Care Plan Advance Directives Established: No Advance Directives Information Provided To Patient: No Advance Directives on File: No (Informational pamphlet given to patient and will discuss with family .) Living Will: Yes Power of Insole Stiffener: No Advance Care Planning: <Care Plan/Decision Maker Documented; Discussed & Documented> [6853F] - Elder Abuse Suspicion Index Screening: Elder Abuse Suspicion Index Screening Rely on people for bathing, dressing, shopping, banking, etc: No Prevented from getting food, clothes, medication, etc: No Made to feel shamed or threatened by someone: No Forced to sign papers or use money against will: No Feel afraid, touched in ways not wanted or hurt physically: No Poor eye contact, withdrawn, malnourished, cuts or bruises: No Screening Result: Negative result EASI Reference Information: Latrell MANCIA, Delores C, Mariaelena D, Mare Zheng.Development and validation of a tool to assist physicians identification of elder abuse: The Elder Abuse Suspicion Index (EASI ). Journal of Elder Abuse and Neglect, 2008; 20 (3): 276-300. - Elder Maltreatment Screen Quality Measures: Elder Maltreatment Screen and Follow-Up Plan Elder Maltreatment Screen: <Negative, No Follow-Up Plan Required> [G8734]
[2019-01-23] MEDS: UMECLIDINIUM BROMIDE (INCRUSE) 62.5MCG IH SCH (10:11)
[2019-01-23] MEDS: BREO (FLUTICASONE/VILANTEROL) 200MCG/25MCG INHALER INH SCH (10:11)
[2019-01-23] MEDS: PANTOPRAZOLE SODIUM IV 40 MG VIAL IVP SCH (10:18)
[2019-01-23] MEDS: SUCRALFATE 1 G/10 ML UD PO SCH (10:18)
[2019-01-23] MEDS: ATORVASTATIN 20 MG TABLET PO SCH (10:19)
--- NOTE | 2019-01-23 10:42 | Operative Note ---
OPERATION: ESOPHAGOGASTRODUODENOSCOPY. INDICATION: Suspected upper gastrointestinal tract bleeding in this gentleman who was admitted to the hospital complaining of "coughing up or spitting up blood." He does have a prior history of peptic ulcer disease. He had previous endoscopy in 2016 but prior endoscopy in 2011 revealed gastric ulcers and duodenal ulcers. He also has a known history of Cho's esophagus. ANESTHESIA: Intravenous sedation was administered by the department of anesthesiology and included Diprivan titrated to effect. PROCEDURE: Following informed consent from this alert individual, including a discussion of the risks and benefits of the procedure and an opportunity for the patient to ask questions, the patient was in the left lateral decubitus position. The Olympus [id number] video endoscope was inserted into the esophagus without resistance. The proximal esophagus had a normal appearance with normal folds and distensibility. The distal esophagus had demonstrated long-segment Cho's epithelium extending above a small hiatal hernia to the mid esophagus. At the distal esophageal segment there was an area of ulceration with a vessel noted. There was no active bleeding at the ulcer site at this time. There was a small hiatal hernia noted as well. The stomach was entered and demonstrated a marked amount of retained debris precluding a complete evaluation of the mucosa. The pylorus was patent. The duodenal bulb, sweep and descending duodenum were examined in a serial fashion and found to be normal. The endoscope was then drawn back into the body of the stomach. Retroflexion accomplished following air insufflation revealed a small hiatal hernia. The instrument was straightened and withdrawn back to the distal esophagus where again the area of ulceration was noted. It measured approximately 8 mm in size with a vessel noted which was not actively bleeding. The patient had been taking Plavix, and his last dose was yesterday. The endoscope was then withdrawn. Again Cho's esophagus was noted extending in a long segment covering about half of the esophagus distally. The patient tolerated the procedure well and was returned to the recovery area in stable condition. IMPRESSION: 1. Distal esophageal ulceration as described above measuring approximately 8 mm in size with a visible vessel noted. Not actively bleeding at this time. There was no bright red blood noted throughout the examination. 2. Long-segment Cho's esophagus. 3. Small hiatal hernia. 4. Retained food within the stomach precluding complete evaluation. RECOMMENDATION: At this point, I would maintain the patient on Protonix 40 mg twice daily. He should start with liquids only and advance his diet slowly as tolerated provided his hemoglobin remains stable. He should have recheck endoscopy in approximately 8 weeks' time to assess healing and to consider sampling the Cho's epithelium. I would hold his Plavix at this time. As always, thank you for allowing me to participate in the care of your patient. AKUA
--- NOTE | 2019-01-23 10:43 | Medical Records Consult ---
DATE OF CONSULTATION: 01/21/2019 REASON FOR CONSULTATION: Possible upper gastrointestinal tract bleeding. HISTORY OF PRESENT ILLNESS: The patient is a very pleasant 88-year-old gentleman seen this morning in consultation for evaluation of possible upper gastrointestinal tract bleeding. The patient reports that he came to the emergency department yesterday evening because he was "spitting up blood." When questioned, it was not clear whether he was coughing up blood or actually spitting up blood but did notice blood coming from his mouth. He does report a prior history of ulcer disease and, in fact, our records demonstrated duodenal and gastric ulcers years ago. In fact, he had both upper and lower endoscopy in 2016 at which time gastric ulcers, duodenal ulcers, and long-segment Cho's esophagus were noted. He also had a transverse colon polyp adenoma removed at that time. He denies use of anti-inflammatory medications. He did admit to a dark stool prior to admission but claims lately he has been more constipated. PAST MEDICAL HISTORY: Coronary artery disease, hypertension, atherosclerotic vascular disease, COPD, hyperlipidemia. SOCIAL HISTORY: He is a former smoker quitting approximately 10 years ago. He denies alcohol or drug usage. HOME MEDICATIONS: 1. Baby aspirin. 2. Melatonin. 3. Spiriva. 4. Plavix. ALLERGIES: Denied. FAMILY HISTORY: Significant for cancer in his mother. He is not sure what type. REVIEW OF SYSTEMS: Unremarkable except for the above-mentioned GI complaints. PHYSICAL EXAMINATION: VITAL SIGNS: Stable. NECK: Supple. HEART: Regular. LUNGS: Clear. ABDOMEN: Soft. There is no tenderness. EXTREMITIES: Free from edema. NEUROMUSCULAR: Examination seems to be grossly unremarkable. LABORATORY DATA: Initially revealed hemoglobin on admission of 13.0 which on recheck this morning was 11.0. White blood cell count initially was 12.9 which changed to 13.6. BUN 16, creatinine 1.7. Glucose 123. IMPRESSION AND PLAN: The patient might be suffering with upper gastrointestinal tract bleeding. He has a history of multiple ulcers in the stomach and duodenum in the past and has a history of Cho's esophagus as well. Upper endoscopy will be performed for further evaluation. Further recommendations forthcoming. I would empirically use proton pump inhibitor therapy at this time and hold his Plavix and aspirin. Thank you for allowing me to participate in his care. AKUA
== END 2019-01-23 10:34 | disposition home or self-care (01) ==
LOC: ER 23:11 → MEDSURG 01-21 00:42
PROVIDERS: ADMIT Family Medicine; ATTEND Family Medicine
PROC: 0DJ08ZZ Inspection of Upper Intestinal Tract, Via Natural or Artificial Opening Endoscopic (ICD-10-PCS; principal; 2019-01-20)
DX: K92.2 Gastrointestinal hemorrhage, unspecified (principal); Z87.19 Personal history of other diseases of the digestive system; K22.70 Barrett's esophagus without dysplasia; K44.9 Diaphragmatic hernia without obstruction or gangrene; E78.00 Pure hypercholesterolemia, unspecified; J44.9 Chronic obstructive pulmonary disease, unspecified; Z79.02 Long term (current) use of antithrombotics/antiplatelets; Z87.891 Personal history of nicotine dependence
CPT/HCPCS: 71046; 80048; 80053; 81003; 83605; 85025; 93005; 93010; 94640; 96360; 99217; 99220; 99285; C9113; J7030

== ENCOUNTER 2019-03-25 12:37 | Day surgery (SDC) | payer MEDICARE ==
[2019-03-25] MEDS ORDERED: LIDOCAINE 2% MDV (20MG/ML) 20ML VIAL IV ONE (12:38)
[2019-03-25] MEDS ORDERED: PROPOFOL 10 MG/ML VIAL IV ONE (12:38)
--- NOTE | 2019-03-26 06:02 | Operative Note ---
OPERATION: ESOPHAGOGASTRODUODENOSCOPY with multiple biopsies. INDICATION: Recently discovered distal esophageal ulceration with visible vessel. The patient was hospitalized at that time with history of hematemesis. He returns after approximately 2 months to reevaluate the ulcer site following treatment. 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 ANESTHESIA: Intravenous sedation was administered by the department of anesthesiology and included Diprivan titrated to effect. PROCEDURE: Following informed consent from this alert individual, including a discussion of the risks and benefits of the procedure and an opportunity for the patient to ask questions, the patient was in the left lateral decubitus position. The Olympus [id number] video endoscope was inserted into the esophagus without resistance. The proximal esophagus had a normal appearance with normal folds and distensibility. At approximately 32 cm from the incisors, there was a transition noted with Cho's-appearing epithelium. This epithelium extended down to approximately 38 cm from the incisors at which point a small hiatal hernia was encountered. The mucosa in the distal esophagus was minimally irregular with standard endoscopy and with narrow-band imaging. Biopsies from the distal esophageal segment were obtained. He subdiaphragmatic stomach was entered and found to be unremarkable. The pylorus was patent. The duodenal bulb, sweep and descending duodenum were examined in a serial fashion and found to be normal as well. The instrument was then withdrawn back into the stomach where retroflexion accomplished following air insufflation failed to demonstrate any additional abnormalities. The endoscope was straightened and withdrawn back to the distal esophagus where again under narrow-band imaging, multiple biopsies were taken from a slightly edematous, inflamed-appearing mucosa. There were no masses noted. Previously noted ulceration had completely healed. The endoscope was then withdrawn. The patient tolerated the procedure well and was returned to the recovery area in stable condition. IMPRESSION: 1. Healed distal esophageal ulceration. 2. 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 3. Small hiatal hernia. RECOMMENDATION: Further recommendations will be forthcoming pending results of biopsy obtained today. The patient will continue on acid blockade therapy. As always, thank you for allowing me to participate in the care of your patient. AKUA
== END 2019-03-25 14:40 | disposition home or self-care (01) ==
LOC: HOP 12:37
PROVIDERS: ATTEND Internal Medicine Gastroenterology
DX: K92.0 Hematemesis (principal); C15.5 Malignant neoplasm of lower third of esophagus; K44.9 Diaphragmatic hernia without obstruction or gangrene; E78.00 Pure hypercholesterolemia, unspecified; J44.9 Chronic obstructive pulmonary disease, unspecified